=== PATIENT | male | born 1990 | race Caucasian/White ===

== ENCOUNTER 2019-08-02 21:22 | Emergency (ER) | payer OTHER ==
--- NOTE | 2019-08-02 21:26 | ERPHSYRPT ---
- History of Present Illness Time Seen by Provider: 08/02/19 21:26 Source: patient, family Exam Limitations: no limitations Physician History: This is a 29-year-old white male who is been working out in the sun for the last few days. As a temperature has increased as well as the humidity, the patient was not drinking as much as he should have in terms of water. He feels very exhausted and fatigued has a mild headache and nauseated. He is noticed that his urine output has decreased as well. He has not complained of any chest pain shortness of breath or abdominal pain. Timing/Duration: day(s) (3 days), worse Severity: moderate Associated Symptoms: nausea, weakness, No vomiting, No abdominal pain, No shortness of breath, No cough, No fever Allergies/Adverse Reactions: No Known Drug Allergies Allergy (Unverified 08/02/19 22:29) Travel Risk - International Travel Have you traveled outside of the country in past 3 weeks: No Have you or anyone close to you been diagnosed with or: No Do your reside in a community with a known COVID-19 case?: Yes If Yes where:: [facility] - Coronavirus Screening Has patient experienced Coronavirus symptoms: No - Review of Systems Constitutional: Weakness Eyes: No Symptoms Ears, Nose, & Throat: No Symptoms Respiratory: No Symptoms Cardiac: No Symptoms Abdominal/Gastrointestinal: Nausea, No Abdominal Pain, No Vomiting, No Diarrhea Genitourinary Symptoms: Other (Mild decreased urine output. Concentrated urine) Musculoskeletal: No Symptoms Skin: No Symptoms Neurological: No Symptoms Psychological: No Symptoms Endocrine: No Symptoms Hematologic/Lymphatic: No Symptoms Immunological/Allergic: No Symptoms All Other Systems: Reviewed and Negative - Past Medical History Pertinent Past Medical History: No Neurological History: No Pertinent History ENT History: No Pertinent History Cardiac History: No Pertinent History Respiratory History: No Pertinent History Endocrine Medical History: No Pertinent History Musculoskeletal History: No Pertinent History GI Medical History: No Pertinent History History: No Pertinent History Psycho-Social History: No Pertinent History Male Reproductive Disorders: No Pertinent History - Past Surgical History Past Surgical History: No Neuro Surgical History: No Pertinent History Cardiac: No Pertinent History Respiratory: No Pertinent History Gastrointestinal: No Pertinent History Genitourinary: No Pertinent History Musculoskeletal: No Pertinent History Male Surgical History: No Pertinent History - Nursing Vital Signs Nursing Vital Signs: Initial Vital Signs Temperature 98.2 F 08/02/19 22:18 Pulse Rate 90 08/02/19 22:18 Respiratory Rate 16 08/02/19 22:18 Blood Pressure 121/75 08/02/19 22:18 O2 Sat by Pulse Oximetry 96 08/02/19 22:18 Pain Scale Pain Intensity 0 - Physical Exam General Appearance: mild distress, alert Eye Exam: PERRL/EOMI, eyes nml inspection Ears, Nose, Throat Exam: TMs normal, dry mucous membranes (Mild) Neck Exam: normal inspection, non-tender, supple, full range of motion Respiratory Exam: normal breath sounds, lungs clear, airway intact, No chest tenderness, No respiratory distress Cardiovascular Exam: regular rate/rhythm, normal heart sounds, normal peripheral pulses Gastrointestinal/Abdomen Exam: soft, normal bowel sounds, No tenderness Rectal Exam: not done Back Exam: normal inspection, normal range of motion, No CVA tenderness, No vertebral tenderness Extremity Exam: normal inspection, normal range of motion, pelvis stable Neurologic Exam: alert, oriented x 3, cooperative, stock 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 II-XII nml as tested, normal mood/affect, nml cerebellar function, nml station & gait Skin Exam: normal color, warm, dry Lymphatic Exam: No adenopathy SpO2 Interpretation: normal O2 Delivery: Room Air - Course Nursing assessment & vital signs reviewed: Yes Ordered Tests: Active Orders 24 hr Category Date Time Status IV Insertion STAT Care 08/02/19 22:13 Active CBC W DIFF Stat Lab 08/02/19 22:21 Completed CBC W DIFF Stat Lab 08/03/19 03:10 Completed CMP Stat Lab 08/02/19 22:21 Completed Lactic Acid Stat Lab 08/02/19 22:23 Completed Urine Triage Profile Stat Lab 08/03/19 01:51 Completed Medication Summary Discontinued Medications Generic Name Dose Route Start Last Admin Trade Name Freq PRN Reason Stop Dose Admin Famotidine 20 mg 08/02/19 22:13 08/02/19 22:32 Pepcid 20 Mg Vial IV 08/02/19 22:14 20 mg STAT ONE Administration Famotidine Confirm 08/02/19 22:31 Pepcid 20 Mg Vial Administered 08/02/19 22:32 Dose 20 mg IV .STK-MED ONE Sodium Chloride 1,000 mls @ 999 mls/hr 08/02/19 22:13 08/03/19 01:11 Sodium Chloride 0.9% 1000 Ml IV 08/02/19 23:13 Infused .Q1H1M STA Infusion Sodium Chloride Confirm 08/02/19 22:29 Sodium Chloride 0.9% 1000 Ml Administered 08/02/19 22:30 Dose 1,000 mls @ ud .ROUTE .STK-MED ONE Sodium Chloride Confirm 08/02/19 23:47 Sodium Chloride 0.9% 1000 Ml Administered 08/02/19 23:48 Dose 1,000 mls @ ud .ROUTE .STK-MED ONE Sodium Chloride 1,000 mls @ 999 mls/hr 08/03/19 00:03 08/03/19 01:11 Sodium Chloride 0.9% 1000 Ml IV 08/03/19 01:03 Infused .Q1H1M STA Infusion Sodium Chloride 500 mls @ 500 mls/hr 08/03/19 03:00 08/03/19 04:15 Sodium Chloride 0.9% 500 Ml IV 08/03/19 03:59 Infused .Q1H ONE Infusion Sodium Chloride Confirm 08/03/19 03:04 Sodium Chloride 0.9% 500 Ml Administered 08/03/19 03:05 Dose 500 mls @ ud IV .STK-MED ONE Ondansetron HCl 4 mg 08/02/19 22:13 08/02/19 22:32 Zofran 4 Mg/2 Ml Vial IV 08/02/19 22:14 4 mg STAT ONE Administration Ondansetron HCl Confirm 08/02/19 22:31 Zofran 4 Mg/2 Ml Vial Administered 08/02/19 22:32 Dose 4 mg .ROUTE .STK-MED ONE Lab/Rad Data: Laboratory Result Diagrams 08/03/19 03:10 08/02/19 22:21 Laboratory Results 08/03/19 08/03/19 08/02/19 Range/Units 03:10 01:51 22:23 WBC 12.3 H (4.0-10.5) K/mm3 RBC 4.53 (4.1-5.6) M/mm3 Hgb 13.9 (12.5-18.0) gm/dl Hct 41.3 L (42-50) % MCV 91.2 (78-100) fl MCH 30.7 (26-32) pg MCHC 33.7 (32-36) g/dl RDW 13.6 (11.5-14.0) % Plt Count 202 (150-450) K/mm3 MPV 11.3 H (7.5-11.0) fl Gran % 70.9 H (36.0-66.0) % Eos # (Auto) 0.09 (0-0.5) Absolute Lymphs (auto) 2.09 (1.0-4.6) Absolute Monos (auto) 1.40 H (0.0-1.3) Lymphocytes % 16.9 L (24.0-44.0) % Monocytes % 11.3 (0.0-12.0) % Eosinophils % 0.7 (0.00-5.0) % Basophils % 0.2 (0.0-0.4) % Absolute Granulocytes 8.74 H (1.4-6.9) Basophils # 0.02 (0-0.4) Sodium (137-145) mmol/L Potassium (3.5-5.1) mmol/L Chloride (98-107) mmol/L Carbon Dioxide (22-30) mmol/L Anion Gap (5-15) MEQ/L BUN (9-20) mg/dL Creatinine (0.66-1.25) mg/dL Estimated GFR ML/MIN Glucose (74-106) mg/dL Lactic Acid 1.0 (0.4-2.0) Calcium (8.4-10.2) mg/dL Total Bilirubin (0.2-1.3) mg/dL AST (17-59) U/L ALT (0-50) U/L Alkaline Phosphatase (38-126) U/L Serum Total Protein (6.3-8.2) g/dL Albumin (3.5-5.0) g/dL Urine Color (YELLOW) Urine Appearance (CLEAR) Urine pH (5-6) Ur Specific Downey (1.005-1.025) Urine Protein (Negative) Urine Ketones (NEGATIVE) Urine Blood (0-5) Vitor/ul Urine Nitrite (NEGATIVE) Urine Bilirubin (NEGATIVE) Urine Urobilinogen (0-1) mg/dL Ur Leukocyte Esterase (NEGATIVE) Urine WBC (Auto) (0-5) /HPF Urine RBC (Auto) (0-2) /HPF U Epithel Cells (Auto) (FEW) /HPF Urine Bacteria (Auto) (NEGATIVE) /HPF Urine Mucus (Auto) (NEGATIVE) /HPF Urine Culture Reflexed (NO) Urine Glucose (NEGATIVE) mg/dL Urine Opiates Level NEGATIVE (NEGATIVE) Ur Methadone NEGATIVE (NEGATIVE) Urine Barbiturates NEGATIVE (NEGATIVE) Ur Phencyclidine (PCP) NEGATIVE (NEGATIVE) Urine Amphetamine NEGATIVE (NEGATIVE) U Benzodiazepine Level NEGATIVE (NEGATIVE) Urine Cocaine NEGATIVE (NEGATIVE) Urine Marijuana (THC) POSITIVE (NEGATIVE) 08/02/19 08/02/19 08/02/19 Range/Units 22:21 22:21 01:51 WBC 13.1 H (4.0-10.5) K/mm3 RBC 4.93 (4.1-5.6) M/mm3 Hgb 15.3 (12.5-18.0) gm/dl Hct 44.5 (42-50) % MCV 90.3 (78-100) fl MCH 31.0 (26-32) pg MCHC 34.4 (32-36) g/dl RDW 13.6 (11.5-14.0) % Plt Count 210 (150-450) K/mm3 MPV 11.8 H (7.5-11.0) fl Gran % 73.9 H (36.0-66.0) % Eos # (Auto) 0.15 (0-0.5) Absolute Lymphs (auto) 1.90 (1.0-4.6) Absolute Monos (auto) 1.35 H (0.0-1.3) Lymphocytes % 14.5 L (24.0-44.0) % Monocytes % 10.3 (0.0-12.0) % Eosinophils % 1.1 (0.00-5.0) % Basophils % 0.2 (0.0-0.4) % Absolute Granulocytes 9.66 H (1.4-6.9) Basophils # 0.02 (0-0.4) Sodium 139 (137-145) mmol/L Potassium 3.4 L (3.5-5.1) mmol/L Chloride 103 (98-107) mmol/L Carbon Dioxide 24 (22-30) mmol/L Anion Gap 16.2 H (5-15) MEQ/L BUN 14 (9-20) mg/dL Creatinine 0.86 (0.66-1.25) mg/dL Estimated GFR > 60.0 ML/MIN Glucose 95 (74-106) mg/dL Lactic Acid (0.4-2.0) Calcium 10.0 (8.4-10.2) mg/dL Total Bilirubin 1.70 H (0.2-1.3) mg/dL AST 23 (17-59) U/L ALT 20 (0-50) U/L Alkaline Phosphatase 65 (38-126) U/L Serum Total Protein 8.9 H (6.3-8.2) g/dL Albumin 5.2 H (3.5-5.0) g/dL Urine Color DARK YELLOW (YELLOW) Urine Appearance HAZY (CLEAR) Urine pH 5.0 (5-6) Ur Specific Downey 1.030 (1.005-1.025) Urine Protein NEGATIVE (Negative) Urine Ketones TRACE (NEGATIVE) Urine Blood NEGATIVE (0-5) Vitor/ul Urine Nitrite NEGATIVE (NEGATIVE) Urine Bilirubin NEGATIVE (NEGATIVE) Urine Urobilinogen 2 (0-1) mg/dL Ur Leukocyte Esterase NEGATIVE (NEGATIVE) Urine WBC (Auto) 0-2 (0-5) /HPF Urine RBC (Auto) NONE SEEN (0-2) /HPF U Epithel Cells (Auto) RARE (FEW) /HPF Urine Bacteria (Auto) NONE SEEN (NEGATIVE) /HPF Urine Mucus (Auto) MANY (NEGATIVE) /HPF Urine Culture Reflexed NO (NO) Urine Glucose NEGATIVE (NEGATIVE) mg/dL Urine Opiates Level (NEGATIVE) Ur Methadone (NEGATIVE) Urine Barbiturates (NEGATIVE) Ur Phencyclidine (PCP) (NEGATIVE) Urine Amphetamine (NEGATIVE) U Benzodiazepine Level (NEGATIVE) Urine Cocaine (NEGATIVE) Urine Marijuana (THC) (NEGATIVE) - Progress Progress: improved, re-examined Progress Note: 08/03/19 04:19 Patient states he is feeling much better Counseled pt/family regarding: lab results, diagnosis, need for follow-up - Departure Departure Disposition: Home Clinical Impression: Heat intolerance, Dehydration, mild Condition: Stable Critical Care Time: No Additional Instructions: Plenty of cool liquids. Avoid exposure to sun for the next 24 hours. Keep well -hydrated Forms: Work/School Release Form
[2019-08-02] MEDS ORDERED: Sodium Chloride 0.9% 1000 ML 1,000 ML IV STA (22:13)
[2019-08-02] MEDS ORDERED: Zofran 4 MG/2 ML VIAL IV ONE (22:13)
[2019-08-02] MEDS ORDERED: Pepcid 20 MG VIAL IV ONE ×2 (22:13→22:31)
[2019-08-02 22:27] LABS: Absolute Neutrophil Ct (ANC) 9.66 (1.4-6.9); BASOPHIL % 0.2 % (0.0-0.4); Basophil (Absolute #) 0.02 (0-0.4); Eosinophil % 1.1 % (0.00-5.0); Eosinophil (Absolute #) 0.15 (0-0.5); Hematocrit 44.5 % (42-50); Hemoglobin 15.3 gm/dl (12.5-18.0); Lymphocytes % 14.5 % (24.0-44.0); Mean Cell Volume 90.3 fl (78-100); Mean Corpuscular Hgb Concent. 34.4 g/dl (32-36); Mean Platelet Volume 11.8 fl (7.5-11.0); Monocyte (Absolute #) 1.35 (0.0-1.3); Monocytes % 10.3 % (0.0-12.0); Neutrophil % 73.9 % (36.0-66.0); Platelet Count 210 K/mm3 (150-450); Red Blood Count 4.93 M/mm3 (4.1-5.6); Red Cell Distribution Width 13.6 % (11.5-14.0); White Blood Count 13.1 K/mm3 (4.0-10.5)
[2019-08-02] MEDS ORDERED: Sodium Chloride 0.9% 1000 ML 1,000 ML ONE ×2 (22:29→23:47)
[2019-08-02] MEDS ORDERED: Zofran 4 MG/2 ML VIAL ONE (22:31)
[2019-08-02 22:49] LABS: ALBUMIN 5.2 g/dL (3.5-5.0); ALKALINE PHOSPHATASE 65 U/L (38-126); ANION GAP 16.2 MEQ/L (5-15); BLOOD UREA NITROGEN 14 mg/dL (9-20); CHLORIDE 103 mmol/L (98-107); Carbon Dioxide 24 mmol/L (22-30); Creatinine 1 0.86 mg/dL (0.66-1.25); Glucose 95 mg/dL (74-106); Potassium 3.4 mmol/L (3.5-5.1); SGOT/AST 23 U/L (17-59); SGPT/ALT 20 U/L (0-50); SODIUM 139 mmol/L (137-145); Total Protein 8.9 g/dL (6.3-8.2)
[2019-08-03] MEDS ORDERED: Sodium Chloride 0.9% 1000 ML 1,000 ML IV STA (00:03)
[2019-08-03 02:11] LABS: Amphetamine,Urine NEGATIVE (NEGATIVE); Barbiturate,Urine NEGATIVE (NEGATIVE); Benzodiazepine,Urine NEGATIVE (NEGATIVE); Cocaine,Urine NEGATIVE (NEGATIVE); Methadone,Urine NEGATIVE (NEGATIVE); Opiate,Urine NEGATIVE (NEGATIVE); PCP,Urine NEGATIVE (NEGATIVE); THC,Urine POSITIVE (NEGATIVE)
[2019-08-03 02:18] LABS: Appearance HAZY (CLEAR)
[2019-08-03 02:22] LABS: Bilirubin NEGATIVE (NEGATIVE); Blood NEGATIVE Ery/ul (0-5); Epithelial Cells RARE /HPF (FEW); Glucose NEGATIVE (NEGATIVE); Ketones TRACE (NEGATIVE); Leukocyte Esterase NEGATIVE (NEGATIVE); Nitrite NEGATIVE (NEGATIVE); Protein,Urine Dip NEGATIVE (Negative); RBC NONE SEEN /HPF (0-2); Urobilinogen 2 mg/dL (0-1); WBC 0-2 /HPF (0-5)
[2019-08-03 02:23] LABS: Bacteria NONE SEEN /HPF (NEGATIVE); Mucus MANY /HPF (NEGATIVE)
[2019-08-03] MEDS ORDERED: Sodium Chloride 0.9% 500 ML 500 ML IV ONE ×2 (03:00→03:04)
[2019-08-03 03:12] LABS: Absolute Neutrophil Ct (ANC) 8.74 (1.4-6.9); BASOPHIL % 0.2 % (0.0-0.4); Basophil (Absolute #) 0.02 (0-0.4); Eosinophil % 0.7 % (0.00-5.0); Eosinophil (Absolute #) 0.09 (0-0.5); Hematocrit 41.3 % (42-50); Hemoglobin 13.9 gm/dl (12.5-18.0); Lymphocyte (Absolute #) 2.09 (1.0-4.6); Lymphocytes % 16.9 % (24.0-44.0); Mean Cell Volume 91.2 fl (78-100); Mean Corpuscular Hemoglobin 30.7 pg (26-32); Mean Corpuscular Hgb Concent. 33.7 g/dl (32-36); Mean Platelet Volume 11.3 fl (7.5-11.0); Monocytes % 11.3 % (0.0-12.0); Neutrophil % 70.9 % (36.0-66.0); Platelet Count 202 K/mm3 (150-450); Red Blood Count 4.53 M/mm3 (4.1-5.6); Red Cell Distribution Width 13.6 % (11.5-14.0); White Blood Count 12.3 K/mm3 (4.0-10.5)
[2019-08-03 04:16] VITALS: BP 136/80; PULSE 82; O2SAT 98
== END 2019-08-03 04:29 | disposition home or self-care (01) ==
LOC: ED 21:22
DX: E86.0 Dehydration (principal); R51 Headache; T67.5XXA Heat exhaustion, unspecified, initial encounter
CPT/HCPCS: 36000; 36415; 80053; 80307; 81001; 83605; 85025; 96360; 96361; 96365; 96374; 96375; 99284; J2405